=== PATIENT | male | born 1970 | race Hispanic/Latino ===

== ENCOUNTER 2018-12-12 03:47 | Inpatient (IN) | payer SELFPAY ==
[2018-12-12] MEDS ORDERED: FENTANYL CITR 100 MCG/2 ML ONE ×2 (05:15→09:44)
[2018-12-12 05:21] LABS: Albumin 3.5 g/dL (3.4-5.0); Bilirubin Direct 0.3 mg/dL (0-0.2); Bilirubin Total 0.8 mg/dL (0.2-1.0); Potassium 3.4 mmol/L (3.5-5.1); Protein, Total 6.6 g/dL (6.4-8.2)
--- NOTE | 2018-12-12 06:40 | ER ---
Nurse's Notes [facility] Name: Alexis Izquierdo Jr Age: 48 yrs Sex: Male : 1970 Arrival Date: 12/12/2018 Time: 03:52 Bed 4 Private MD: Diagnosis: Acute appendicitis;Acute appendicitis with localized peritonitis Presentation: 12/12 04:05 Presenting complaint: Patient states: Lower pelvic abdominal pain that began at 0200; lp1 States pain relief when urination; Denies any N/V/D. Transition of care: patient was not received from another setting of care. Onset of symptoms was December 12, 2018 at 02:00. Risk Assessment: Do you want to hurt yourself or someone else? Patient reports no desire to harm self or others. Initial Sepsis Screen: Does the patient meet any 2 criteria? No. Patient's initial sepsis screen is negative. Does the patient have a suspected source of infection? No. Patient's initial sepsis screen is negative. Care prior to arrival: None. 04:05 Method Of Arrival: Ambulatory lp1 04:05 Acuity: MCKENZIE 3 lp1 Historical: - Allergies: 04:09 No Known Allergies; lp1 - Home Meds: 04:09 Unable to obtain [Active]; lp1 - PMHx: 04:09 Hypertension; lp1 - PSHx: 04:09 Gastric Bypass; lp1 - Immunization history:: Adult Immunizations up to date. - Social history:: Smoking status: Patient/guardian denies using tobacco. - Ebola Screening: : No symptoms or risks identified at this time. Screenin:09 Abuse screen: Denies threats or abuse. Denies injuries from another. Nutritional lp1 screening: No deficits noted. Tuberculosis screening: No symptoms or risk factors identified. Fall Risk None identified. Assessment: 04:10 General: Appears in no apparent distress. comfortable, Behavior is calm, cooperative, cc3 appropriate for age. Pain: Complains of pain in lower abdominal pain. Neuro: Level of Consciousness is awake, alert, obeys commands, Oriented to person, place, time, situation, Appropriate for age. Cardiovascular: Denies chest pain. Respiratory: Airway is patent Respiratory effort is even, unlabored, Respiratory pattern is regular, symmetrical. GI: Bowel sounds present X 4 quads. Abd is soft and non tender X 4 quads. : No signs and/or symptoms were reported regarding the genitourinary system. EENT: No signs and/or symptoms were reported regarding the EENT system. Derm: No signs and/or symptoms reported regarding the dermatologic system. Musculoskeletal: Circulation, motion, and sensation intact. Range of motion: intact in all extremities. 05:33 Reassessment: Patient appears in no apparent distress at this time. Patient and/or cc3 family updated on plan of care and expected duration. Pain level reassessed. Patient is alert, oriented x 3, equal unlabored respirations, skin warm/dry/pink. 06:09 Reassessment: Patient appears in no apparent distress at this time. Patient and/or cc3 family updated on plan of care and expected duration. Pain level reassessed. Patient is alert, oriented x 3, equal unlabored respirations, skin warm/dry/pink. Patient came back from CT scan department, awaiting result. 06:55 Reassessment: Patient appears in no apparent distress at this time. Patient and/or cc3 family updated on plan of care and expected duration. Pain level reassessed. Patient is alert, oriented x 3, equal unlabored respirations, skin warm/dry/pink. CT scan result's appendicitis, GIOVANI Calderon faxed the ordered Cefoxitin to pharmacy. 07:00 Reassessment: RECD REPORT FROM TRACEY MATUTE. 48YO HM P/W ABD PAIN, NOW DX WITH bp APPENDICITIS. ADMIT IN PROCESS. 07:52 Reassessment: Pt going to OR at this time with Lindsey MTAUTE from OR. Informed leana Posada 2nd floor membership secretary that pt is going there first. Vital Signs: 04:06 BP 133 / 81; Pulse 68; Resp 20; Temp 99.1(O); Pulse Ox 98% on R/A; Weight 97.52 kg; lp1 Height 5 ft. 11 in. (180.34 cm); Pain 4/10; 05:33 BP 122 / 67; Pulse 68; Resp 18 S; Pulse Ox 96% on R/A; cc3 06:25 BP 132 / 74; Pulse 72; Resp 18 S; Pulse Ox 98% on R/A; cc3 07:17 BP 115 / 62; Pulse 76; Resp 18; Pulse Ox 97% ; sv 04:06 Body Mass Index 29.99 (97.52 kg, 180.34 cm) lp1 ED Course: 03:52 Patient arrived in ED. es 04:01 Tracey Lilly is Primary Nurse. cc3 04:06 Triage completed. lp1 04:07 Arm band placed on right wrist. lp1 04:09 Patient has correct armband on for positive identification. Placed in gown. Cardiac lp1 monitor on. Pulse ox on. NIBP on. 04:13 Inserted saline lock: 20 gauge in right antecubital area, using aseptic technique. lt1 04:28 Luis Saleem MD is Attending Physician. gs 04:51 Initial lab(s) drawn, by me, sent to lab. lt1 05:51 CT Abd/Pelvis - W/Contrast In Process Unspecified. EDMS 05:53 CT completed. Patient tolerated procedure well. Patient moved back from CT. kw1 06:39 Lorne Ayon MD is Hospitalizing Provider. gs 06:58 Report given to GIOVANI Beavers. cc3 07:18 Nimesh Herrera RN is Primary Nurse. bp 07:33 No provider procedures requiring assistance completed. Patient admitted, IV remains in bp place. Administered Medications: 05:05 Drug: fentaNYL (PF) 50 mcg Route: IVP; Site: right antecubital; cc3 05:10 Follow up: Response: No adverse reaction cc3 06:54 Drug: NS 0.9% 1000 ml Route: IV; Rate: 125 ml/hr; Site: right antecubital; cc3 07:51 Follow up: Response: No adverse reaction; IV Status: Infusion continued upon admission sv 07:19 Drug: cefOXitin 1 grams {Note: RECD FROM PHARMACY AT 0715.} Route: IVPB; Infused Over: bp 30 mins; Site: right antecubital; 07:51 Follow up: Response: No adverse reaction; IV Status: Completed infusion; IV Intake: 50mlsv Intake: 07:51 IV: 50ml; Total: 50ml. sv Outcome: 06:40 Decision to Hospitalize by Provider. gs 07:34 Condition: stable bp 07:34 Instructed on the need for admit. 07:40 Admitted to Med/surg accompanied by tech, via wheelchair, room 231, with chart, Report sv called to Diony MATUTE 07:51 Patient left the ED. sv Signatures: Dispatcher [facility] Lindsey Lowery RN RN sv Patricia Elise Laura, GIOVANI RN lp1 Luis Saleem MD MD Nimesh Herrera, GIOVANI RN Mckenzie Willams 1 Tracey Lilly 3 Abigail Garcia 1
--- NOTE | 2018-12-12 06:41 | EDPHYS ---
Physician Documentation [facility] Name: Alexis Izquierdo Jr Age: 48 yrs Sex: Male : 1970 Arrival Date: 12/12/2018 Time: 03:52 Bed 4 Private MD: ED Physician Luis Saleem HPI: 12/12 05:43 This 48 yrs old Male presents to ER via Ambulatory with complaints of gs Abdominal Pain. 05:43 The patient presents with abdominal pain in the lower abdomen. Onset: The gs symptoms/episode began/occurred gradually, yesterday. The symptoms do not radiate. Associated signs and symptoms: Pertinent negatives: diarrhea, dysuria, fever. The symptoms are described as crampy. Modifying factors: The symptoms are alleviated by nothing. Severity of pain: At its worst the pain was moderate in the emergency department the pain is unchanged. The patient has experienced similar episodes in the past, a few times. Historical: - Allergies: 04:09 No Known Allergies; lp1 - Home Meds: 04:09 Unable to obtain [Active]; lp1 - PMHx: 04:09 Hypertension; lp1 - PSHx: 04:09 Gastric Bypass; lp1 - Immunization history:: Adult Immunizations up to date. - Social history:: Smoking status: Patient/guardian denies using tobacco. - Ebola Screening: : No symptoms or risks identified at this time. ROS: 05:43 All other systems are negative. gs Exam: 05:43 Head/Face: Normocephalic, atraumatic. Eyes: Pupils equal round and reactive to light, gs extra-ocular motions intact. Lids and lashes normal. Conjunctiva and sclera are non-icteric and not injected. Cornea within normal limits. Periorbital areas with no swelling, redness, or edema. ENT: Nares patent. No nasal discharge, no septal abnormalities noted. Tympanic membranes are normal and external auditory canals are clear. Oropharynx with no redness, swelling, or masses, exudates, or evidence of obstruction, uvula midline. Mucous membranes moist. Neck: Trachea midline, no thyromegaly or masses palpated, and no cervical lymphadenopathy. Supple, full range of motion without nuchal rigidity, or vertebral point tenderness. No Meningismus. Chest/axilla: Normal chest wall appearance and motion. Nontender with no deformity. No lesions are appreciated. Cardiovascular: Regular rate and rhythm with a normal S1 and S2. No gallops, murmurs, or rubs. Normal PMI, no JVD. No pulse deficits. Respiratory: Lungs have equal breath sounds bilaterally, clear to auscultation and percussion. No rales, rhonchi or wheezes noted. No increased work of breathing, no retractions or nasal flaring. Back: No spinal tenderness. No costovertebral tenderness. Full range of motion. Skin: Warm, dry with normal turgor. Normal color with no rashes, no lesions, and no evidence of cellulitis. MS/ Extremity: Pulses equal, no cyanosis. Neurovascular intact. Full, normal range of motion. Neuro: Awake and alert, GCS 15, oriented to person, place, time, and situation. Cranial nerves II-XII grossly intact. Motor strength 5/5 in all extremities. Sensory grossly intact. Cerebellar exam normal. Normal gait. 05:43 Constitutional: The patient appears alert, awake. 05:43 Abdomen/GI: Palpation: moderate abdominal tenderness, in the suprapubic area, right lower quadrant, rebound tenderness, is not appreciated. Vital Signs: 04:06 BP 133 / 81; Pulse 68; Resp 20; Temp 99.1(O); Pulse Ox 98% on R/A; Weight 97.52 kg; lp1 Height 5 ft. 11 in. (180.34 cm); Pain 4/10; 05:33 BP 122 / 67; Pulse 68; Resp 18 S; Pulse Ox 96% on R/A; cc3 06:25 BP 132 / 74; Pulse 72; Resp 18 S; Pulse Ox 98% on R/A; cc3 07:17 BP 115 / 62; Pulse 76; Resp 18; Pulse Ox 97% ; sv 04:06 Body Mass Index 29.99 (97.52 kg, 180.34 cm) lp1 MDM: 04:28 Patient medically screened. gs 05:43 Differential diagnosis: bowel obstruction, diverticulitis, non-specific abd pain, gs pancreatitis. Data reviewed: vital signs, nurses notes. Counseling: I had a detailed discussion with the patient and/or guardian regarding: the historical points, exam findings, and any diagnostic results supporting the discharge/admit diagnosis, lab results, radiology results. Response to treatment: the patient's symptoms have markedly improved after treatment, and as a result, I will discharge patient. 06:38 Differential diagnosis: appendicitis. Physician consultation: Lorne Ayon MD. 12/12 04:38 Order name: Basic Metabolic Panel; Complete Time: 06:08 12/12 04:38 Order name: CBC with Diff; Complete Time: 06:35 12/12 04:38 Order name: Hepatic Function; Complete Time: 06:08 12/12 04:38 Order name: Lipase; Complete Time: 06:08 12/12 06:46 Order name: Liver (Hepatic) Function EDMI 12/12 06:46 Order name: Liver (Hepatic) Function EDMI 12/12 04:38 Order name: IV Saline Lock; Complete Time: 04:44 12/12 04:38 Order name: Labs collected and sent; Complete Time: 04:44 12/12 04:38 Order name: CT Abd/Pelvis - W/Contrast 12/12 06:46 Order name: NPO EDMI 12/12 07:03 Order name: Urine Dipstick--Ancillary (enter results) 12/12 06:38 Order name: NPO; Complete Time: 06:40 gs Administered Medications: 05:05 Drug: fentaNYL (PF) 50 mcg Route: IVP; Site: right antecubital; cc3 05:10 Follow up: Response: No adverse reaction cc3 06:54 Drug: NS 0.9% 1000 ml Route: IV; Rate: 125 ml/hr; Site: right antecubital; cc3 07:51 Follow up: Response: No adverse reaction; IV Status: Infusion continued upon admission sv 07:19 Drug: cefOXitin 1 grams {Note: RECD FROM PHARMACY AT 0715.} Route: IVPB; Infused Over: bp 30 mins; Site: right antecubital; 07:51 Follow up: Response: No adverse reaction; IV Status: Completed infusion; IV Intake: 50mlsv Disposition: 12/12/18 06:40 Hospitalization ordered by Lorne Ayon for Inpatient Admission. Preliminary diagnosis are Acute appendicitis, Acute appendicitis with localized peritonitis. - Bed requested for Telemetry/MedSurg (Inpatient). - Status is Inpatient Admission. sv - Condition is Stable. - Problem is new. - Symptoms have improved. UTI on Admission? No Signatures: Dispatcher [employer] EDLindsey Case RN RN sv Chyna Block, RN RN Yesenia De La Cruz, RN RN lp1 Luis Saleem MD MD Nimesh Herrera RN RN Tracey Lilly cc3 Corrections: (The following items were deleted from the chart) 06:39 05:43 Abdomen/GI: Palpation: moderate abdominal tenderness, in the suprapubic area, right lower quadrant and left lower quadrant, rebound tenderness, is not appreciated, 07:23 06:40 Hospitalization Ordered by Lorne Ayon MD for Inpatient Admission. Preliminary diagnosis is Acute appendicitis; Acute appendicitis with localized peritonitis. Bed requested for Telemetry/MedSurg (Inpatient). Status is Inpatient Admission. Condition is Stable. Problem is new. Symptoms have improved. UTI on Admission? No. 07:51 07:23 12/12/2018 06:40 Hospitalization Ordered by Lorne Ayon MD for Inpatient Admission. Preliminary diagnosis is Acute appendicitis; Acute appendicitis with localized peritonitis. Bed requested for Telemetry/MedSurg (Inpatient). Status is Inpatient Admission. Condition is Stable. Problem is new. Symptoms have improved. UTI on Admission? No. dw
[2018-12-12] MEDS ORDERED: MORPHINE 4 MG/ML SYR IV PRN (06:44)
[2018-12-12] MEDS ORDERED: ONDANSETRON 4 MG/2 ML VIAL IV PRN ×2 (06:44→11:22)
[2018-12-12] MEDS ORDERED: ACETAMINOPHEN 500 MG TAB PO PRN (06:44)
[2018-12-12] MEDS ORDERED: NA CHLORIDE 0.9% 1,000 ML ONE ×2 (06:52→10:55)
[2018-12-12] MEDS ORDERED: CEFOXITIN/SWI 1gm 1 GM/10 ML SYR IV SCH (07:00)
[2018-12-12] MEDS: D5 0.45 NS 1,000 ML IV SCH ×3 (07:00→23:00)
[2018-12-12] MEDS ORDERED: NA CHLORIDE 0.9% 100 ML IV ONE (07:25)
[2018-12-12 07:51] LABS: Urine Blood TRACE (NEG); Urine Glucose NEGATIVE (NEG); Urine Protein NEGATIVE (NEG)
--- NOTE | 2018-12-12 08:42 | RAD REPORT ---
EXAM DESCRIPTION: CTAbdomen Pelvis W Contrast - 12/12/2018 6:54 am CLINICAL HISTORY: Abdominal pain. ABD PAIN COMPARISON: No comparisons TECHNIQUE: Biphasic CT imaging of the abdomen and pelvis was performed with 100 ml non-ionic IV cont rast. All CT scans are performed using dose optimization technique as appropriate and may include automated exposure control or mA/KV adjustment according to patient size. FINDINGS: The lung bases are clear.Postoperative changes of gastric bypass seen. The liver, spleen, pancreas, adrenal glands and kidneys are within normal limits. No bowel obstruction, free air or abscess. The appendix is dilated to 13 mm with significant surroun ding phlegmonous change in fluid compatible with acute appendicitis. Early perforation not excluded t he tip region. No evidence of significant lymphadenopathy. No suspicious bony findings. Small fat containing bilateral inguinal hernias. IMPRESSION: Acute appendicitis.
[2018-12-12] MEDS ORDERED: METRONIDAZOLE 500mg IVPB 500 MG/100 ML BAG IV ONE (09:13)
[2018-12-12] MEDS ORDERED: ROCURONIUM 50 MG/5 ML VIAL IV ONE (09:44)
[2018-12-12] MEDS ORDERED: LIDOCAINE 2% MPF 5 ML VIAL ONE (09:44)
[2018-12-12] MEDS ORDERED: MIDAZOLAM HCL 2 MG/2 ML INJ ONE (09:44)
[2018-12-12] MEDS ORDERED: PROPOFOL 200 MG/20 ML VIAL IV ONE (09:44)
[2018-12-12] MEDS ORDERED: ONDANSETRON 4 MG/2 ML VIAL ONE (09:44)
[2018-12-12] MEDS ORDERED: BUPIVACAINE 0.5% PF 10 ML VIAL ONE (09:45)
[2018-12-12] MEDS ORDERED: KETOROLAC 30 MG/ML INJ ONE ×2 (10:20→10:51)
[2018-12-12] MEDS ORDERED: GLYCOPYRROLATE 0.2 MG/ML SYR ONE (10:51)
[2018-12-12] MEDS ORDERED: NEOSTIGMINE 1 MG/ML -5 ML SYRINGE ONE (10:52)
[2018-12-12 10:59] LABS: Urine Appearance CLEAR; Urine Bilirubin NEGATIVE (NEG); Urine Blood NEGATIVE (NEG); Urine Color YELLOW; Urine Glucose NEGATIVE (NEG); Urine Protein NEGATIVE (NEG); Urine Specific Gravity >=1.030 (1.005-1.030)
--- NOTE | 2018-12-12 11:12 | P.OP ---
[place] Investigator: Ha NOEL Preoperative diagnosis: Acute Appendicitis Postoperative diagnosis: Acute Perforated Appendicitis Primary procedure: Lap Appy Anesthesia: General Estimated blood loss: min Specimen: Appy Findings: as above Complications: None Drain(s): MARCIA drain Transferred to: Recovery Room Condition: Good
[2018-12-12 11:19] LABS: Urine Bacteria <20 /HPF (NONE SEEN); Urine Culture Reflex Order NOT NEEDED; Urine Mucus 1+ /HPF (NONE SEEN); Urine RBC <5 /HPF (NONE SEEN)
[2018-12-12] MEDS ORDERED: HYDROMORPHONE HCL 1 MG/ML INJ IV PRN (11:22)
[2018-12-12] MEDS ORDERED: SUCCINYLCHOLINE 20 MG/ML (10 ML) IV ONE (11:29)
[2018-12-12] MEDS ORDERED: CEFOXITIN 1 GM in NA CHLORIDE 0.9% 100 ML IVPB SCH ×4 (12:00)
--- NOTE | 2018-12-12 12:59 | PREOPHP ---
Date of Admission: 12/12/2018 Chief Complaint: Abdominal pain. History Of Present Illness: The patient is a 48-year-old gentleman who comes in with a 1-day history of right lower quadrant pain. Denies any nausea, vomiting, diarrhea, or constipation. No dysuria o r hematuria. No sore throat, runny nose, cough, headaches, or dizziness. No chest pain. No fever o r chills. No anorexia. The pain is consistent and constant. Review of Systems: Otherwise unremarkable. Past Medical History: Hypertension. Past Surgical History: Gastric bypass surgery, done laparoscopically. Allergies: NONE. Social History: The patient denies smoking or drinking. Family History: Negative. Physical Examination: Vital Signs: Stable currently. Temperature is 99.1. General: He is awake, alert, and oriented x3. Head and Neck: Cranial nerves 2 to 12 are grossly within normal limits. No neck masses. No JVD. T hroat clear. Neck is supple. Chest: Clear. Heart: S1, S2. Abdomen: Soft, nondistended. Positive bowel sounds. Positive right lower quadrant tenderness with rebound. Mild rigidity, and involuntary guarding minimal. Extremity: Adequately perfused. Nontender. Neuro: Nonfocal. Laboratory Data: Reviewed. His CT of the abdomen and pelvis reviewed, consistent with acute appendi citis. He does not have leukocytosis. Assessment: Acute appendicitis. Plan: Admit n.p.o., IV fluid, IV antibiotic. To OR for laparoscopic appendectomy, possibly open. T he patient understands the risks, benefits, and alternatives and agrees to procedure. DONAVON/MODL Voice ID: [id number]
[2018-12-12 14:20] VITALS: BMI 29.9
[2018-12-12] MEDS: CEFOXITIN/SWI 1gm 1 GM/10 ML SYR IVP SCH ×2 (14:34→19:29)
[2018-12-12] MEDS: METRONIDAZOLE 500mg IVPB 500 MG/100 ML BAG IV SCH ×2 (14:35→20:54)
[2018-12-12] MEDS: HYDROCODONE/APAP 7.5/325 MG TAB PO PRN (20:54)
--- NOTE | 2018-12-13 00:37 | OP ---
Date of Procedure: 12/12/2018 Surgeon: Lorne Ayon MD Public Health Administrator: BERT Chen. Preoperative Diagnosis: Acute appendicitis. Postoperative Diagnosis: Acute perforated appendicitis. Estimated Blood Loss: Minimal. Specimen: Appendix. Findings: As above. Anesthesia: General. Complications: None. Disposition: The patient tolerated the procedure in stable condition and was taken to Recovery in go od general condition. Procedure In Detail: The patient was brought to the OR and placed in supine position. General anest hesia was begun. The patient was prepped and draped in the usual sterile fashion. Marcaine 0.5% was infiltrated locally. A #15 blade was used to make a 1-cm infraumbilical midline incision. Subcutan eous tissues were divided. Fascia was identified and divided. A #1 Vicryl stay suture was placed. Peritoneal cavity was entered with blunt dissection. A 12-mm trocar was placed into the peritoneal c avity under direct vision. Pneumoperitoneum was established. Then, two 5-mm trocars were placed, on e in the suprapubic region and one in the left lower quadrant. Laparoscopy revealed pus in the pelvi s, which was aspirated, and the right pericolic gutter which was aspirated. Subsequently, the append ix was identified. It was medial to the cecum, toward the ileocecal valve. There was a lot of pus a round it. There was obvious perforation present with some stool leaking through. This was all aspir ated. Mesoappendix and base of the appendix were identified. There was sort of inflammatory capsule present around this area. This was carefully dissected, and base of the appendix and mesoappendix w ere divided with the Endo-ALVARO stapling device. The appendix fell apart during the dissection, tips o f it, and this was all put together in a bag and removed with EndoCatch bag in the standard fashion. Then, right pericolic gutter, right lower quadrant, and pelvis were thoroughly irrigated. Effluent was clear. No evidence of bleeding or bowel injury appreciated. Subsequently, a Dhaval-Real drain #10 flat was placed in the right lower quadrant and pelvis and secured with 3-0 nylon. All trocars were removed under direct vision. Stay sutures were tied to each other to reapproximate the fascial defect. Subcutaneous wounds were irrigated. Bleeding was controlled with cautery. Then, 3-0 chromi c was used to approximate subcutaneous tissue. Stapler was used to close skin. Sterile dressing was applied. The patient was awakened and taken to Recovery in good general condition. DONAVON/RICK Voice ID: [id number] Report ID: [id number]
[2018-12-13] MEDS: CEFOXITIN/SWI 1gm 1 GM/10 ML SYR IVP SCH ×4 (01:32→19:11)
[2018-12-13] MEDS: D5 0.45 NS 1,000 ML IV SCH ×5 (02:00→23:00)
[2018-12-13] MEDS: METRONIDAZOLE 500mg IVPB 500 MG/100 ML BAG IV SCH ×4 (03:08→21:42)
[2018-12-13] MEDS: HYDROCODONE/APAP 7.5/325 MG TAB PO PRN ×2 (04:29→16:18)
[2018-12-13 06:02] LABS: Absolute Lymphocytes (CBC) 0.5 K/uL (0.7-4.9); Absolute Monocytes 0.4 K/uL (0.1-1.3); Absolute Neutrophil 7.3 K/uL (1.8-8.0); Hematocrit 38.7 % (39.6-49.0); Lymphocytes % 5.9 % (15.3-44.8); MPV 9.7 fL (7.6-11.3); Monocytes % 4.7 % (3.3-12.3); RBC Red Blood Cell Count 4.58 M/uL (4.33-5.43)
[2018-12-13 06:12] LABS: Phosphorus 2.2 mg/dL (2.5-4.9); Potassium 3.5 mmol/L (3.5-5.1)
--- NOTE | 2018-12-13 12:45 | PN ---
Date of Progress Note: 12/13/2018 Subjective: The patient is awake, alert, tolerating diet. No pain. Vital signs stable. However, h e does have temperature that went up above a 101. Tylenol was ordered for that. White count is norm al, however, he does have significant left shift. Abdomen is benign, soft, nondistended, nontender. Assessment: Status post laparoscopic appendectomy for perforated appendicitis. Recommendations: Continue IV antibiotics. To encourage ambulation and incentive spirometry. The pa tient is slowly improving. /MODL Voice ID: [id number] Report ID: [id number]
[2018-12-13] MEDS: ACETAMINOPHEN 500 MG TAB PO PRN (12:53)
[2018-12-14] MEDS: ACETAMINOPHEN 500 MG TAB PO PRN ×3 (00:58→18:06)
[2018-12-14] MEDS: CEFOXITIN/SWI 1gm 1 GM/10 ML SYR IVP SCH ×4 (00:59→18:05)
[2018-12-14] MEDS: METRONIDAZOLE 500mg IVPB 500 MG/100 ML BAG IV SCH ×4 (03:33→20:42)
[2018-12-14] MEDS: D5 0.45 NS 1,000 ML IV SCH ×4 (03:34→23:00)
--- NOTE | 2018-12-14 11:19 | PN ---
Date of Progress Note: 12/14/2018 Subjective: The patient is awake and alert. No complaints. Objective: Vital signs: Stable. Temperature is coming down. Abdomen: Benign. MARCIA is putting out 20 cc of serosanguinous fluid. He is ambulating. Assessment: Status post laparoscopic appendectomy for perforated appendicitis. Plan: Continue IV antibiotics. We will check his electrolytes as well as his CBC tomorrow morning, and if they are stable and he is doing well, we will probably discharge him within 24 to 48 hours. /MODL Voice ID: [id number] Report ID: [id number]
[2018-12-14] MEDS: HYDROCODONE/APAP 7.5/325 MG TAB PO PRN (12:35)
[2018-12-14] MEDS ORDERED: POTASSIUM CL SA 10 MEQ TAB PO ONE (17:00)
[2018-12-15] MEDS: CEFOXITIN/SWI 1gm 1 GM/10 ML SYR IVP SCH ×3 (00:28→13:00)
[2018-12-15] MEDS: HYDROCODONE/APAP 7.5/325 MG TAB PO PRN ×2 (00:32→13:21)
[2018-12-15] MEDS: METRONIDAZOLE 500mg IVPB 500 MG/100 ML BAG IV SCH ×2 (03:01→09:32)
[2018-12-15 06:12] LABS: Absolute Lymphocytes (CBC) 0.8 K/uL (0.7-4.9); Absolute Monocytes 0.6 K/uL (0.1-1.3); Absolute Neutrophil 5.9 K/uL (1.8-8.0); Basophils % 0.1 % (0-1.3); Eosinophils % 1.9 % (0-4.4); Hematocrit 37.7 % (39.6-49.0); Lymphocytes % 10.1 % (15.3-44.8); MPV 9.3 fL (7.6-11.3); Monocytes % 8.6 % (3.3-12.3); RBC Red Blood Cell Count 4.52 M/uL (4.33-5.43)
[2018-12-15 06:18] LABS: BUN Blood Urea Nitrogen 10 mg/dL (7-18); Bicarbonate 28 mmol/L (21-32); Glucose Level 93 mg/dL (74-106); Magnesium 2.1 mg/dL (1.8-2.4); Phosphorus 2.6 mg/dL (2.5-4.9); Potassium 3.6 mmol/L (3.5-5.1); Sodium Level 141 mmol/L (136-145)
[2018-12-15] MEDS: D5 0.45 NS 1,000 ML IV SCH ×2 (07:00→09:34)
[2018-12-15] MEDS ORDERED: POTASSIUM CL SA 10 MEQ TAB PO ONE (09:00)
[2018-12-15 11:39] VITALS: O2SAT 97
[2018-12-15 15:39] VITALS: BP 137/84; TEMP 99.9
--- NOTE | 2018-12-15 22:25 | DS ---
Date of Discharge: 12/15/2018 Discharge Diagnosis: Acute appendicitis. Discharge Diagnosis: Acute perforated appendicitis. Hospital Course: The patient is a 48-year-old gentleman who underwent a laparoscopic appendectomy fo r perforated appendicitis, was kept for IV antibiotics. His white count is normal. He is ambulating , tolerating diet, afebrile male, and MARCIA drain is putting minimal serosanguineous fluids. Therefore, MARCIA drain will be discontinued, and the patient will be discharged to home. Disposition: Home. Condition: Stable. Discharge Instructions: Resume home medications and diet. Activity as tolerated. No heavy lifting. Remove outer dressing in a.m. Shower. Keep wound clean and dry. Follow up in my office in 1 week . Call for appointment. Tylenol No. 3 one table p.o. q.4 hours p.r.n. pain, Cipro 500 mg p.o. q.12 hours, and Flagyl 500 mg p.o. q.8 hours. /MODL Voice ID: [id number] Report ID: [id number]
== END 2018-12-15 14:45 | disposition home or self-care (01) | DRG 340 ==
LOC: ER 03:47 → ERHOLD 06:52 → 2ND 07:40
PROVIDERS: ADMIT Surgery; ATTEND Surgery
PROC: 0DTJ4ZZ Resection of Appendix, Percutaneous Endoscopic Approach (ICD-10-PCS; principal; 2018-12-12 14:30)
DX: K35.32 Acute appendicitis with perforation, localized peritonitis, and gangrene, without abscess (principal); I10 Essential (primary) hypertension; Z98.84 Bariatric surgery status
CPT/HCPCS: 36415; 74177; 80048; 80076; 81001; 81003; 83690; 83735; 84100; 85025; 88304; J0330; J0694; J2250; J2405; J2704; J2710; J3010; J7030; Q9967